=== PATIENT | male | born 1980 | race African-American/Black ===

== ENCOUNTER 2021-11-16 18:33 | Emergency (ER) | payer OTHER ==
[~2021-11-16] VITALS: Ht 167.6 cm; Wt 81.6 kg
[2021-11-16 18:58] LABS: BASO # 0.1 10*3/uL (0.0-0.1); BASO % 0.3 % (0.0-1.0); EOS % 0.2 % (1.0-4.0); HEMATOCRIT 47.6 % (42.0-52.0); LYMPH # 4.9 10*3/uL (1.3-4.4); LYMPH % 25.2 % (27.0-41.0); MEAN CELL VOLUME 82.6 fl (80.0-94.0); MEAN CORPUSCULAR HGB 28.3 pg (27.0-31.0); MEAN CORPUSCULAR HGB CONC 34.2 g/dl (33.0-37.0); MONO # 1.5 10*3/uL (0.1-1.0); MONO % 7.7 % (3.0-9.0); NEUT # 12.9 10*3/uL (2.3-7.9); NEUT % 66.1 % (47.0-73.0); PLATELET COUNT AUTOMATED 261 10*3/uL (130-400); RED BLOOD COUNT 5.76 10*6/uL (4.50-5.90); RED CELL DISTRI WIDTH 13.3 % (0-14.5); WHITE BLOOD COUNT 19.5 10*3/uL (4.8-10.8)
[2021-11-16 19:15] LABS: ALKALINE PHOSPHATASE 102 U/L (45-117); BUN 21 mg/dl (7-24); CHLORIDE 103 mmol/L (98-107); CREATININE 1.33 mg/dL (0.70-1.30); POTASSIUM 3.4 mmol/L (3.5-5.1); SGOT/AST 43 IU/L (3-35); SGPT/ALT 65 U/L (12-78); SODIUM 137 mmol/L (136-145)
[2021-11-16 19:18] LABS: ACT PARTIAL THROMBO TIME 25.5 SECONDS (20.0-32.1)
[2021-11-16] MEDS ORDERED: NAPROXEN250 MG PO (20:48)
== END 2021-11-16 21:15 | disposition home or self-care (01) ==
LOC: ED 18:33
PROVIDERS: Emergency Medicine
DX: R07.9 Chest pain, unspecified (principal); E87.6 Hypokalemia; D72.829 Elevated white blood cell count, unspecified; Z91.040 Latex allergy status